=== PATIENT | male | born 1980 | race Caucasian/White ===

== ENCOUNTER 2018-04-12 10:34 | Inpatient (IN) | payer BC, OTHER ==
[~2018-04-12] VITALS: Ht 167.6 cm; Wt 80.6 kg
[~2018-04-12 10:34] MED LIST: ACID REFLUX MED PO; BACITRACIN 50,000 UNIT ONE; BACITRACIN OINT 500U/GM, 15 GM ONE; BUPIVACAINE/PF-EPI 0.5% 1:200K ONE; CEFAZOLIN 1,000 MG ONE; DEXAMETHASONE 4 MG/ML, 1ML ONE; FENTANYL PF 250 MCG/5ML ONE; FISH OIL PO; LIDOCAINE-MPF 2% ,5ML ONE; MIDAZOLAM 1 MG/ML, 2ML ONE; MULTIVITAMIN PO; OMEPRAZOLE PO; PROPOFOL 10 MG/ML, 20ML ONE; PROPOFOL 50 ML ONE; ROCURONIUM 10MG/ML,5ML ONE; SUCCINYLCHOLINE 20 MG/ML, 10ML ONE; THROMBIN SPRAY 20,000 UNIT SPRAY TP ONE; VITAMIN B12 PO
[2018-04-12] MEDS ORDERED: LACTATED RINGERS 1,000 ML IV SCH (11:12)
[2018-04-12 11:30] VITALS: BP 103/65
[2018-04-12] MEDS ORDERED: ONDANSETRON ODT 8 MG PO ONE (11:30)
[2018-04-12] MEDS ORDERED: GABAPENTIN 300 MG CAPSULE PO ONE (11:30)
[2018-04-12] MEDS ORDERED: ACETAMINOPHEN 500 MG TABLET PO ONE (11:30)
[2018-04-12] MEDS ORDERED: LYRICA PO (11:42)
[2018-04-12] MEDS ORDERED: BACLOFEN PO (11:42)
[2018-04-12] MEDS ORDERED: OXYC-307 PO (11:42)
[2018-04-12] MEDS ORDERED: CELE200C PO (11:42)
[2018-04-12] MEDS ORDERED: KETAMINE 10 MG/ML, 20ML ONE (11:50)
[2018-04-12] MEDS ORDERED: LORazepam 2 MG/ML, 1ML IVPush PRN (12:30)
[2018-04-12] MEDS ORDERED: LABETALOL 5MG/ML, 20ML IV PRN (12:30)
[2018-04-12] MEDS ORDERED: METOPROLOL 1 MG/ML, 5ML IV PRN (12:30)
[2018-04-12] MEDS ORDERED: MEPERIDINE/PF 25MG/0.5ML IVPush PRN (12:30)
[2018-04-12] MEDS ORDERED: DIPHENHYDRAMINE 50 MG/ML, 1ML IVPush PRN ×2 (12:30→16:30)
[2018-04-12] MEDS ORDERED: METOCLOPRAMIDE 5 MG/ML, 2ML IV PRN (12:30)
[2018-04-12] MEDS ORDERED: OXYcodone 5 MG/5 ML ORAL.SOL UDC PO PRN (12:30)
[2018-04-12] MEDS ORDERED: hydrALAzine 20 MG/ML, 1ML IV PRN (12:30)
[2018-04-12] MEDS ORDERED: PROPOFOL 50 ML ONE (12:32)
[2018-04-12] MEDS ORDERED: MEPERIDINE/PF 50 MG/ML ONE (14:00)
[2018-04-12] MEDS ORDERED: OXYcodone 5 MG/5 ML ORAL.SOL UDC ONE (14:01)
[2018-04-12] MEDS ORDERED: HYDROmorphone 2 MG/ML, 1ML ONE (14:04)
[2018-04-12] MEDS ORDERED: FENTANYL PF 100 MCG/2ML ONE (14:43)
[2018-04-12] MEDS: HYDROmorphone 2 MG/ML, 1ML IVPush PRN ×6 (14:45→15:30)
[2018-04-12] MEDS: FENTANYL PF 100 MCG/2ML IV PRN ×3 (14:45→14:56)
[2018-04-12] MEDS ORDERED: METHOCARBAMOL 1,000 MG in DEXTROSE 5% 100 ML IV ONE (15:00)
[2018-04-12] MEDS ORDERED: MAGNESIUM HYDROXIDE 8%, 30ML UDC PO PRN (16:30)
[2018-04-12] MEDS ORDERED: OXYcodone/APAP 5/325MG TABLET PO PRN (16:30)
[2018-04-12] MEDS ORDERED: PROMETHAZINE 25 MG/ML, 1ML IM PRN (16:30)
[2018-04-12] MEDS ORDERED: ONDANSETRON 2MG/ML, 2ML IV PRN (16:30)
[2018-04-12] MEDS ORDERED: BISACODYL 10 MG SUPP PR PRN (16:30)
[2018-04-12] MEDS ORDERED: DIPHENHYDRAMINE 50 MG CAPSULE PO PRN (16:30)
[2018-04-12] MEDS ORDERED: LORazepam 1MG TABLET PO PRN (16:30)
[2018-04-12] MEDS ORDERED: DIPHENHYDRAMINE 50 MG/ML, 1ML IM PRN (16:30)
[2018-04-12] MEDS: DEXAMETHASONE 4 MG/ML, 1ML IVPush SCH ×2 (17:11→23:10)
[2018-04-12] MEDS: NS + 20MEQ KCL 1,000 ML IV SCH (17:11)
[2018-04-12] MEDS: morphine SULFATE 10 MG/ML, 1ML IV PRN ×2 (17:45→23:11)
[2018-04-12] MEDS ORDERED: PREGABALIN 200 MG CAPSULE PO SCH (18:00)
[2018-04-12] MEDS ORDERED: BACLOFEN 10 MG TABLET PO SCH ×2 (18:00→22:00)
[2018-04-12] MEDS: CEFAZOLIN PMX 2GM/50ML 50 ML IVPB SCH (19:51)
[2018-04-12 20:00] VITALS: BP 91/52
[2018-04-12] MEDS ORDERED: OXYcodone IR 5MG TABLET PO PRN (21:00)
[2018-04-12] MEDS ORDERED: OxyconTIN ER 15 MG TAB.ER PO SCH (21:00)
[2018-04-12] MEDS: BACLOFEN 10 MG TABLET PO SCH (21:24)
[2018-04-12] MEDS: PREGABALIN 200 MG CAPSULE PO SCH (21:24)
[2018-04-12] MEDS: OXYcodone IR 5MG TABLET PO SCH (21:24)
[2018-04-12] MEDS: METHOCARBAMOL 750 MG in DEXTROSE 5% 100 ML IV SCH (23:11)
[2018-04-13] MEDS: morphine SULFATE 10 MG/ML, 1ML IV PRN ×2 (00:07→06:06)
[2018-04-13 00:16] VITALS: BP 102/56
[2018-04-13] MEDS: OXYcodone IR 5MG TABLET PO SCH ×3 (01:17→08:55)
[2018-04-13] MEDS: NS + 20MEQ KCL 1,000 ML IV SCH (02:56)
[2018-04-13] MEDS: CEFAZOLIN PMX 2GM/50ML 50 ML IVPB SCH (04:04)
[2018-04-13 04:15] VITALS: BP 101/55
[2018-04-13] MEDS: DEXAMETHASONE 4 MG/ML, 1ML IVPush SCH ×2 (05:15→10:39)
[2018-04-13] MEDS ORDERED: OMEPRAZOLE 10 MG CAPSULE.DR PO SCH (06:00)
[2018-04-13] MEDS: BACLOFEN 10 MG TABLET PO SCH (06:06)
[2018-04-13] MEDS: METHOCARBAMOL 750 MG in DEXTROSE 5% 100 ML IV SCH (06:30)
[2018-04-13 08:30] VITALS: BP 92/56
[2018-04-13] MEDS: PREGABALIN 200 MG CAPSULE PO SCH (08:55)
[2018-04-13] MEDS ORDERED: SENNA/DOCUSATE TABLET PO SCH (09:00)
[2018-04-13] MEDS ORDERED: OXYC5TAB3 PO (10:45)
[2018-04-13] MEDS ORDERED: OXYC30TA66 PO (10:46)
[2018-04-13] MEDS ORDERED: METH4TAB2 PO (10:50)
[2018-04-13] MEDS ORDERED: ENOXAPARIN 30 MG/0.3 ML SQ SCH (14:00)
[2018-04-14] MEDS ORDERED: METHOCARBAMOL 750 MG TABLET PO SCH (23:00)
== END 2018-04-13 11:10 | disposition home or self-care (01) | DRG 472 ==
LOC: ORIP 10:34 → 4NOR 16:14 → DCLOUNGE 04-13 11:02
PROVIDERS: ADMIT Neurological Surgery; ATTEND Neurological Surgery
PROC: 0RG10A0 Fusion of Cervical Vertebral Joint with Interbody Fusion Device, Anterior Approach, Anterior Column, Open Approach (ICD-10-PCS; 2018-04-12)
PROC: 4A11X4G Monitoring of Peripheral Nervous Electrical Activity, Intraoperative, External Approach (ICD-10-PCS; 2018-04-12)
PROC: 0RB30ZZ Excision of Cervical Vertebral Disc, Open Approach (ICD-10-PCS; principal; 2018-04-12 12:00)
DX: M48.02 Spinal stenosis, cervical region (principal); M50.022 Cervical disc disorder at C5-C6 level with myelopathy; G82.20 Paraplegia, unspecified; M50.122 Cervical disc disorder at C5-C6 level with radiculopathy; M40.50 Lordosis, unspecified, site unspecified; K21.9 Gastro-esophageal reflux disease without esophagitis; G89.29 Other chronic pain
CPT/HCPCS: 72040; C1713; G0378; J0690; J1100; J1170; J2175; J2250; J2704; J3010; J3480; J3490; C1778; J0330; J2270; J2800; J7120

== ENCOUNTER 2018-12-03 12:50 | Inpatient (IN) | payer OTHER ==
[~2018-12-03] VITALS: Ht 167.6 cm; Wt 82.5 kg
[2018-12-05 09:20] VITALS: BP 136/86
== END 2018-12-05 13:17 | disposition home or self-care (01) | DRG 472 ==
LOC: ED 14:22 → EDIP 17:42 → 4NOR 18:25 → ED 18:45 → 4NOR 19:10 → DCLOUNGE 12-05 13:04
PROVIDERS: ADMIT Family Medicine; ATTEND Family Medicine
PROC: 0RG10A0 Fusion of Cervical Vertebral Joint with Interbody Fusion Device, Anterior Approach, Anterior Column, Open Approach (ICD-10-PCS; principal; 2018-12-04)
PROC: 0RB30ZZ Excision of Cervical Vertebral Disc, Open Approach (ICD-10-PCS; 2018-12-04)
PROC: 01N10ZZ Release Cervical Nerve, Open Approach (ICD-10-PCS; 2018-12-04)
PROC: 4A11X4G Monitoring of Peripheral Nervous Electrical Activity, Intraoperative, External Approach (ICD-10-PCS; 2018-12-04)
DX: M48.02 Spinal stenosis, cervical region (principal); G82.20 Paraplegia, unspecified; M50.021 Cervical disc disorder at C4-C5 level with myelopathy; M50.121 Cervical disc disorder at C4-C5 level with radiculopathy; G89.29 Other chronic pain; K21.9 Gastro-esophageal reflux disease without esophagitis; Z99.3 Dependence on wheelchair; Z98.1 Arthrodesis status
CPT/HCPCS: 36415; 72040; 96372; 96374; 99285; J3490; 71045; 72141; 80048; 82040; 85025; 85610; 93005; C1713; G0378; J0690; J1100; J1170; J2250; J2405; J2704; J3010; J3480; C1762; J0330; J2370; J2800

== ENCOUNTER 2019-02-16 23:04 | Emergency (ER) | payer SELFPAY ==
[~2019-02-16] VITALS: Ht 167.6 cm; Wt 88.0 kg
[~2019-02-16 23:04] MED LIST changes: -BACITRACIN 50,000 UNIT ONE; -BACITRACIN OINT 500U/GM, 15 GM ONE; +BACLOFEN PO; -BUPIVACAINE/PF-EPI 0.5% 1:200K ONE; -CEFAZOLIN 1,000 MG ONE; +CELE200C PO; -DEXAMETHASONE 4 MG/ML, 1ML ONE; -FENTANYL PF 250 MCG/5ML ONE; -LIDOCAINE-MPF 2% ,5ML ONE; +LYRICA PO; +METH4TAB2 PO; -MIDAZOLAM 1 MG/ML, 2ML ONE; +OXYC-307 PO; +OXYC30TA66 PO; +OXYC5TAB3 PO; -PROPOFOL 10 MG/ML, 20ML ONE; -PROPOFOL 50 ML ONE; -ROCURONIUM 10MG/ML,5ML ONE; -SUCCINYLCHOLINE 20 MG/ML, 10ML ONE; -THROMBIN SPRAY 20,000 UNIT SPRAY TP ONE
--- NOTE | 2019-02-16 23:18 | NUR ---
Pt c/o upperback, neck, and LUE extremity painxmultiple days. States hx of neck sx and "i think i may have something pinched in there or something." States having this feeling in the past and "it has subsided". States "i do typically fall out of my wheel chair a lot, it is mostly from transferring. I cant remember i specific moment where i would have hurt myself though." Pa at bedside for assessment.
[2019-02-17] MEDS ORDERED: DIAZEPAM 5 MG TABLET ONE (00:08)
--- NOTE | 2019-02-17 00:12 | NUR ---
Pt states he has a pain pump implanted recently and was denied to do mri. Pt consulting specialist to see if pump is mri safe. Pt refusing ct "its not going to tell us anything, and it will cost a couple grand. Let me just try to clear this mri thing. Thats what i want."
[2019-02-17] MEDS ORDERED: DIAZEPAM 5 MG TABLET PO ONE (00:30)
[2019-02-17] MEDS ORDERED: HYDROmorphone 1 MG/ML, 1ML VIAL ONE (00:49)
[2019-02-17] MEDS ORDERED: ONDANSETRON ODT 4 MG ONE (00:49)
[2019-02-17] MEDS ORDERED: ONDANSETRON ODT 4 MG PO ONE (01:00)
[2019-02-17] MEDS ORDERED: HYDROmorphone 1 MG/ML, 1ML INJ IM ONE (01:00)
--- NOTE | 2019-02-17 01:00 | NUR ---
Pt states can bring in a remote that "can turn my pump into mri mode and it will be safe." Awaiting arrival of .
--- NOTE | 2019-02-17 01:43 | NUR ---
PT TO MRI AT THIS TIME, STABLE AND NAD.
[2019-02-17 02:29] VITALS: BP 104/55
--- NOTE | 2019-02-17 02:43 | NUR ---
Pt sleeping comfortably on gurney. Nadn. Rr even and unlabored.
== END 2019-02-17 03:19 | disposition home or self-care (01) ==
LOC: ED 02-17 00:46
DX: M54.12 Radiculopathy, cervical region (principal); G82.20 Paraplegia, unspecified
CPT/HCPCS: 72141; 96372; 99284; J1170; Q0162

== ENCOUNTER 2019-03-20 10:26 | Outpatient (CLI) | payer BC, OTHER | END 2019-03-20 23:59 | disposition home or self-care (01) | LOC: CFH 10:26 | PROVIDERS: ATTEND Nurse Practitioner Critical Care Medicine | DX: M48.02 Spinal stenosis, cervical region (principal); M43.22 Fusion of spine, cervical region | CPT/HCPCS: 72125 ==